=== PATIENT | female | born 1975 | race Caucasian/White ===

== ENCOUNTER 2020-08-29 16:19 | Emergency (ER) | payer OTHER ==
--- NOTE | 2020-08-29 17:23 | TELE ---
HPI Do you have fever,cough or shortness of breath?: No - General Reason For Visit: COVID TEST History Source: Patient Exam Limitations: No Limitations - History of Present Illness 08/29/20 17:19 Patient is a 45-year-old female who participated in a virtual urgent care visit for COVID testing secondary to having specific symptoms including fever, upset stomach, body aches and fatigue. She states the symptoms started today. She has had fluctuating temperatures with a T-max of 100.5F. She states she took something for her upset stomach but has not taken any cold medication. She denies any known COVID contacts. She has not traveled outside the [place] within the last 30 days and has not traveled outside [facility] within the last 15. She has no past medical history and states she is allergic to amoxicillin. Past History - Medical History Allergies/Adverse Reactions: Allergies Allergy/AdvReac Type Severity Reaction Status Date / Time amoxicillin Allergy Verified 01/16/16 19:46 Home Medications: Ambulatory Orders NK [No Known Home Medication] 01/16/16 - Psycho-Social/Smoking History Smoking History: Never smoked Have you smoked in the past 12 months: No Review of Systems - Review of Systems Comments:: 08/29/20 17:20 - Review of Systems Able to Perform ROS?: Yes Constitutional: No: Chills, Loss of Appetite, Night Sweats, Weakness; positive: Low-grade fevers, body aches, fatigue HEENTM: No: Eye Pain, Vision changes, Ear Pain, Throat Pain, Throat Swelling, Mouth Pain, Difficulty Swallowing Respiratory: No: Cough, Shortness of Breath, Wheezing, Sputum Production Cardiac (ROS): No: Chest Pain, Chest Tightness, Palpitations, Irregular Heart Beat, Edema ABD/GI: No: Nausea, Vomiting, Abdominal Pain, Diarrhea; positive: Upset stomach : No Dysuria, No Hematuria, No Frequency, No Urgency, No Vaginal Discharge/Pain Musculoskeletal: No: Muscle Pain, Back Pain, Joint Pain, Muscle Weakness, Neck Pain Integumentary: No: Lesions, Rash Neurological: No: Headache, Numbness, Tingling, Weakness, Speech Difficulties *Physical Exam - Physical Exam 08/29/20 17:21 - Physical Exam General Appearance: Nourished, Appropriately Dressed, No Distress HEENT: EOMI, Normal Voice, Hearing Grossly Normal Neck: No Decreased range of motion Respiratory/Chest: Normal chest excursion appreciated, No Accessory Muscle Use, speaking in full and complete sentences Gastrointestinal/Abdominal: No distention Musculoskeletal: Normal Inspection Integumentary: Normal Color, Dry. No Rash Neurologic: deputy chief executive II-XII NML intact, Fully Oriented, Alert, Normal Mood/Affect, Normal Response - Medical Decision Making 08/29/20 17:21 Assessment: Patient is a 45-year-old female with flulike symptoms concern for COVID. She participated in a virtual urgent care visit for COVID testing. Plan: -COVID swab ordered -COVID counseling given, isolation precautions reviewed -Patient to proceed to the [facility] for test -She understands and agrees with this treatment plan Discharge Diagnosis at time of Disposition: Counseled about COVID-19 virus infection - Referrals - Patient Instructions Discharge Instructions: [facility]-Coronavirus Instructions, [facility] COVID-19 Isolation Protocol Additional Discharge Instructions: You were seen via a telehealth visit and tested for COVID today. You should follow isolation precautions as per [facility] guidelines. Thank you for participating in our telehealth medicine program. If you have any worsening symptoms such as high fever, shaking chills, profuse vomiting or any other worsening symptoms you should go to your local emergency department immediately or follow up with your primary care doctor immediately. For symptoms: Take Tylenol 650 mg every 6 hours as needed for fever or pain. You may take Robitussin or other [id number] cough syrup. Follow the dosing instructions on the bottle. Warm tea, honey, and salt water gargles may help your symptoms. Please take precautions and self quarantine for 2 weeks and follow-up with your primary care doctor and the Department of Health. Return to the nearest emergency department for shortness of breath, difficulty breathing, chest pain, or if you have any changes in your symptoms. You should isolate at home until your culture results become available. - Discharge Disposition: HOME Condition at time of Disposition: Stable
== END 2020-08-29 17:23 | disposition home or self-care (01) ==
LOC: JVIRT 16:19
DX: Z11.59 Encounter for screening for other viral diseases (principal)
CPT/HCPCS: C9803; Q3014-GT; U0003